=== PATIENT | male | born 1975 | race Caucasian/White ===

== ENCOUNTER 2024-07-08 08:26 | Emergency (ER) | payer OTHER, MEDICAID, SELFPAY ==
[2024-07-08 08:45] VITALS: BP 129/63; PULSE 76; RESP 16; TEMP 36.4; O2SAT 97; BMI 33.0
--- NOTE | 2024-07-08 09:07 | ED_ITS ---
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 He requests refills of prednisone and hydroxyzine. He is living [facility], traveling to [place] for a music festival the next few days over this weekend. He has some itching and rash to the armpit areas, would like prednisone treatment, also hydroxyzine. No fevers or chills. No swelling to face eyelids tongue lips. No wheezing or shortness of breath or chest pain. Related Data Previous Rx's Medication Instructions Recorded hydroxyzine HCl 50 mg tablet 50 mg PO BEDTIME #30 tabs 07/08/24 prednisone 20 mg tablet 20 mg PO DAILY #10 tabs 07/08/24 Allergies Allergy/AdvReac Type Severity Reaction Status Date / Time codeine AdvReac Verified 07/08/24 09:00 doxycycline AdvReac Verified 07/08/24 09:00 Penicillins AdvReac Verified 07/08/24 09:00 Review of Systems Review of Systems Narrative: see HPI Exam Narrative Exam Narrative: GENERAL: Well-developed patient, in mild distress. HEAD: Atraumatic. Normocephalic. EYES: Pupils equal round and reactive. Extraocular motions intact. No scleral icterus. No injection or drainage. ENT: Nose without bleeding, purulent drainage. Throat without erythema, tonsillar hypertrophy or exudate. Airway patent. No obvious swelling to lips or tongue, nor to eyelids, no psoriatic scalp line area changes, no obvious scalp seborrhea NECK: Trachea midline. Non tender CARDIOVASCULAR: Regular rate and rhythm without murmurs, gallops, or rubs. RESPIRATORY: Clear to auscultation. Breath sounds equal bilaterally. No wheezes, rales, or rhonchi. GASTROINTESTINAL: Abdomen soft, non-tender, nondistended. EXTREMITIES: No edema or joint tenderness. Some urticarial plaques bilateral axillae, also between buttocks, no cellulitis or drainable fluid obvious my exam BACK: Nontender without deformity or crepitance. No flank tenderness. NEURO: AOx3. Grossly nonfocal neuro SKIN: No rash or erythema of visible areas Initial Vital Signs Initial Vital Signs: Vital Signs Temperature 97.6 F 07/08/24 08:45 Pulse Rate 76 07/08/24 08:45 Respiratory Rate 16 07/08/24 08:45 Blood Pressure 129/63 07/08/24 08:45 Pulse Oximetry 97 07/08/24 08:45 Oxygen Delivery Method Room Air 07/08/24 08:45 Course Orders Ordered: Discontinued Medications Prednisone (Prednisone 20 Mg Tablet) 60 mg PO NOW ONE Stop: 07/08/24 09:02 Last Admin: 07/08/24 09:09 Dose: 60 mg Documented By: CTS Vital Signs Vital signs: Vital Signs - 8 hr 07/08/24 08:45 Temperature 97.6 F Pulse Rate 76 Respiratory Rate 16 Blood Pressure 129/63 Pulse Oximetry 97 Oxygen Delivery Method Room Air MDM - Skin/Abscess/Foreign Bdy MDM Narrative Medical decision making narrative: 48-year-old male with history of longstanding urticarial vasculitis, steroid responsive, requesting refill of his prednisone hydroxyzine. He has some rash in bilateral axillae that did not appear infected at this time. No facial angioedema at this time, though apparently has had this in the past. He usually responds to prednisone 20 mg daily for 10 day course, with use of hydroxyzine as needed for itching symptom control. 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 Discharge Plan Departure Patient Disposition: Home Clinical Impression: Urticaria Activity Restrictions/Additional Instructions: History of longstanding recurrent urticaria, previous diagnosis urticarial vasculitis, followed by [facility] rheumatology, usually responsive to oral prednisone, also some hydroxyzine for control of itching symptoms, early flare symptoms. Last flare a proximally 3 months ago, ongoing problems for 10 years. Request for refill of your prednisone for possible early flare, this regimen was sent to pharmacy where you are heading for music festival on [facility]. Also prescription sent to that pharmacy for hydroxyzine to use while at the festival as well, did not use while driving or operating machinery in case of drowsiness. Follow up with your corporate human resources manager as scheduled. Return to this/nearest emergency department for any change worsening symptoms or any concerns prior Prescriptions: New prednisone 20 mg tablet 20 mg PO DAILY Qty: 10 1RF hydroxyzine HCl 50 mg tablet 50 mg PO BEDTIME Qty: 30 0RF Stand Alone Forms: Patient Portal/API
[2024-07-08] MEDS: predniSONE 20 MG TABLET 60 MG PO (09:09)
== END 2024-07-08 09:24 | disposition home or self-care (01) ==
PROVIDERS: Emergency Provider Emergency Medicine
DX: L50.9 Urticaria, unspecified (principal)
CPT/HCPCS: 99283